=== PATIENT | female | born 1955 | race Caucasian/White ===

== ENCOUNTER → 2017-06-07 | Outpatient (CLI) | payer BC ==
[~2017-06-07] MED LIST: BUPR-126 PO; CLIN300C99 PO; SERT-1 PO; SERT20OR6 PO; TRAZ-156 PO
--- NOTE | 2017-06-10 09:57 | RADIOLOGY IMAGING REPORT ---
FACILITY: [facility] - [place] PATIENT NAME: September : [id number] MR: [id number] V: [id number] EXAM DATE: ORDERING PHYSICIAN: EMILIANA SANCHEZ TECHNOLOGIST: Dhara Mills PROCEDURE:BILATERAL DIGITAL SCREENING MAMMOGRAM WITH CAD ASSISTED INTERPRETATION AND 3D BREAST TOMOSYNTHESIS. COMPARISON:Prior mammograms dated 07/13/15. INDICATIONS:SCREENING FINDINGS: Moderately dense fibroglandular tissue is seen throughout the breasts. The parenchymal pattern has remained stable when allowing for difference in mammographic technique and patient positioning. There is no evidence of malignant appearing mass, malignant appearing calcification or secondary sign of malignancy in either breast. DIAGNOSTIC CATEGORY 1--NEGATIVE. RECOMMENDATIONS: ROUTINE MAMMOGRAM AND CLINICAL EVALUATION. IMPRESSION: BI-RADS1: No significant abnormality seen. Images were reviewed with R2CAD and 3D breast tomosynthesis. Dictated by: Cortney Lyles M.D. on 06/07/2017 at 11:08 Transcribed by: LUCY on 06/09/2017 at 19:36 Approved by: Cortney Lyles M.D. on 06/10/2017 at 9:56 [facility]
== END ==
LOC: MAMO 01:05
PROVIDERS: ATTEND Nurse Practitioner Family
DX: Z12.31 Encounter for screening mammogram for malignant neoplasm of breast (principal)
CPT/HCPCS: 77063; 77067

== ENCOUNTER → 2018-12-15 | Outpatient (CLI) | payer OTHER ==
[~2018-12-15] MED LIST changes: +SERT-173 PO; -SERT20OR6 PO; -TRAZ-156 PO; +TRAZ50TA52 PO
--- NOTE | 2018-12-15 15:32 | RADIOLOGY IMAGING REPORT ---
FACILITY: [facility] PATIENT NAME: September Radha : 1955 MR: [id number] V: [id number] EXAM DATE: ORDERING PHYSICIAN: EMILIANA SANCHEZ TECHNOLOGIST: Location: [facility] Patient: Radha, September : 1955 Visit/Account:[id number] Date of Sevice: 12/15/2018 XR HAND 3 VIEWS/MORE HISTORY: Arthropathy Additional history: None COMPARISON: None. FINDINGS: Multiple views both hands Right hand: There are small osteophytosis seen in the second third DIP joints and several tiny calcif ications possibly representing intra-articular loose bodies in the second DIP joint. Minimal joint s pace narrowing with osteophytosis seen in the fifth PIP joint Left hand: Minimal joint space narrowing and osteophytosis seen in the second third and fifth DIP cassy nts of the joints are unremarkable. There is very minimal deformity at the base of the proximal phal anx of the thumb which might represent sequelae from an old fracture. 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
--- NOTE | 2018-12-15 15:34 | RADIOLOGY IMAGING REPORT ---
FACILITY: [facility] [place] PATIENT NAME: September Radha : 1955 MR: [id number] V: [id number] EXAM DATE: ORDERING PHYSICIAN: EMILIANA SANCHEZ TECHNOLOGIST: Location: [facility] [place] Patient: Radha, September : 1955 Visit/Account:[id number] Date of Sevice: 12/15/2018 CHEST PA LAT History: Acute bronchitis FINDINGS: Comparison studies: None. Tubes and Lines: None. Lungs and pleura: There is mild pulmonary hyperinflation. There is no evidence of focal consolidat ion or pleural effusions. Mediastinum: normal. Cardiac silhouette: normal . Osseous structures: Unremarkable for age . IMPRESSION: Mild hyperinflation but otherwise unremarkable exam. Report Dictated By: Miah Butcher MD at 12/15/2018 3:26 PM Report E-Signed By: Miah Butcher MD at 12/15/2018 3:27 PM WSN:[id number]
== END ==
LOC: RAD 14:26
PROVIDERS: ATTEND Nurse Practitioner Family
DX: M19.041 Primary osteoarthritis, right hand (principal); M19.042 Primary osteoarthritis, left hand
CPT/HCPCS: 71046

== ENCOUNTER → 2018-12-18 | Outpatient (CLI) | payer OTHER ==
--- NOTE | 2018-12-18 17:21 | RADIOLOGY IMAGING REPORT ---
FAC[place]: [facility] [place]IENT NAME: September Radha : 1955 MR: [id number] V: [id number] EXAM DATE: ORDERING PHYSICIAN: EMILIANA SANCHEZ TECHNOLOGIST: [facility] Patient: Radha, September : 1955 Visit/Account:[id number] Date of Sevice: 12/18/2018 EXAMINATION: CT sinus without IV contrast HISTORY: Bacterial sinusitis COMPARISON: None. TECHNIQUE: Contiguous axial images were obtained through the paranasal sinuses without intravenous c ontrast administration. Coronal and sagittal reformatted images were obtained from the axial source d kaylin. One of the following dose optimization techniques was utilized in the performance of this exam: Autom ated exposure control; adjustment of the mA and/or kV according to the patient's size; or use of an i terative reconstruction technique. Specific details can be referenced in the facility's radiology C T exam operational policy. FINDINGS: Maxillary sinuses: There is moderate mucosal thickening with osteitis in the left maxillary sinus. Th ere is also a soft tissue with hyperdense component arising from the floor of the maxillary sinus. The right maxillary sinus is clear. Frontal sinuses: Negative. Ethmoid air cells: Negative. Sphenoid sinuses: Negative. Ostiomeatal units: The right ostiomeatal unit is clear. The left ostiomeatal unit is opacified. Palumbo isabella, there is an accessory drainage pathway or posteriorly in the left maxillary sinus which is widel y patent. Nasal septum/nasal cavity: Negative. Orbits: Negative. Visualized intracranial contents/soft tissues: Negative. TMJs: Negative. IMPRESSION: Chronic mucosal thickening with soft tissue with hyperdense components in the left maxil tami sinus. This does not appear to be acute bacterial sinusitis however may represent chronic sinusi tis with or without fungal colonization. Report Dictated By: SONY GALLARDO at 12/18/2018 5:12 PM Report E-Signed By: SONY GALLARDO at 12/18/2018 5:15 PM WSN:[id number]
== END ==
LOC: CT 08:33
PROVIDERS: ATTEND Nurse Practitioner Family
DX: J20.9 Acute bronchitis, unspecified (principal); J32.9 Chronic sinusitis, unspecified
CPT/HCPCS: 70486

== ENCOUNTER 2019-01-05 02:21 | Day surgery (SDC) | payer OTHER ==
[~2019-01-05] VITALS: Ht 162.6 cm; Wt 56.7 kg
[~2019-01-05 02:21] MED LIST changes: +CALC-943 PO; +CEFPR500PT PO; +L.AC1CAP6; +LEVO5TAB28 PO; +LYSI500T32 PO; +MULT1CAP59 PO; +OMEG1CAP; +PRAS50TA
[2019-01-05] MEDS ORDERED: fentaNYL CITR 100 MCG/2 ML AMP ONE ×2 (06:48→08:31)
[2019-01-05] MEDS ORDERED: ONDANSETRON 4 MG/2 ML VIAL ONE (06:49)
[2019-01-05] MEDS ORDERED: LIDOCAINE 2% IV 100 MG/5ML SYR ONE (06:49)
[2019-01-05] MEDS ORDERED: PROPOFOL EMUL(*) 10MG/ML 20 ML 20 ML ONE (06:49)
[2019-01-05] MEDS ORDERED: DEXAMETHASONE SOD PHOS 10MG/ML ONE (06:49)
[2019-01-05] MEDS ORDERED: BACITRACIN OINT 15 GM TUBE TP ONE (07:08)
[2019-01-05] MEDS ORDERED: LIDO/EPI 1% MDV 1:100,000 20ML INFIL ONE (07:08)
[2019-01-05] MEDS ORDERED: NS(*) 0.9% 250 ML BAG 250 ML ONE (07:09)
[2019-01-05] MEDS ORDERED: FAMOTIDINE(*) 20MG/50ML PREMIX 50 ML IVPB ONE (07:12)
[2019-01-05] MEDS ORDERED: CLINDAMYCIN(*) 600 MG/NS 50 ML 50 ML IVPB ONE (07:20)
[2019-01-05] MEDS ORDERED: OXYMETAZOLINE SPRAY 15 ML BTL ONE (07:39)
[2019-01-05 07:40] VITALS: BP 114/54
[2019-01-05] MEDS ORDERED: NORMOSOL R SOLN(*) 1000 ML BAG 1,000 ML IV PRN (08:10)
[2019-01-05] MEDS ORDERED: FAMOTIDINE 20 MG TAB PO ONE (08:10)
[2019-01-05] MEDS ORDERED: MIDAZOLAM 2 MG/2 ML VIAL IVP PRN (08:10)
[2019-01-05] MEDS ORDERED: LIDOCAINE/SOD BICARB 8.4% SYR ID ONE (08:10)
[2019-01-05] MEDS ORDERED: METH4TAB66 PO (08:26)
[2019-01-05] MEDS ORDERED: HYDR-653 PO (08:27)
[2019-01-05] MEDS ORDERED: CEFU250T11 PO (08:27)
--- NOTE | 2019-01-05 08:39 | OPERATIVE REPORT 1 ---
EVENT DATE: January 05, 2019 SURGEON: Andre Crawley MD ANESTHESIOLOGIST: Naeem Bowden MD ANESTHESIA: LMA PREOPERATIVE DIAGNOSIS Chronic left maxillary sinusitis. POSTOPERATIVE DIAGNOSIS Chronic left maxillary sinusitis. PROCEDURE PERFORMED Left maxillary enterostomy with removal of sinus contents. INDICATIONS Please refer to the preoperative note. DESCRIPTION OF PROCEDURE The patient was positively identified in the preoperative area. She was there alone. Risks again explained, including, but are not limited to bleeding, infection, injury to the orbit, vision changes, injury to the eye, cerebral spine fluid leak, and those associated with anesthesia. She acknowledged understanding of those risks. Again, I reviewed the patient's preoperative CT of the sinuses. This was notable for opacification in the left maxillary sinus with calcifications. The patient was then brought back to the operative suite, placed supine on the operative table and anesthesia was administered. Once asleep, the patient was positioned and prepped and draped in the usual sterile fashion. The left nasal cavity was initially decongested by applying cottonoids containing Afrin solution. These were subsequently removed and nasal endoscopy was performed. This was notable for gross purulence in the left ostiomeatal complex. The lateral nasal wall infiltrated with approximately 1 cc of 1% lidocaine with epinephrine and then uncinectomy was performed. The natural maxillary ostium was widened with back biting forceps and the microdebrider blade. The patient had fungal concretions consistent with a fungal ball. This was carefully removed with suction and oblique sleeve forceps. The sinus was then irrigated with 60 cc of normal saline solution. A nasal port was placed. The patient was then turned to Anesthesia for emergence. ESTIMATED BLOOD LOSS 10 cc. COMPLICATIONS None. MTDD
[2019-01-05 09:07] VITALS: BP 128/53
[2019-01-05] MEDS ORDERED: APAP/HYDROCODONE 325/5 TAB PO PRN (09:20)
[2019-01-05 10:00] VITALS: BP 115/63
[2019-01-05 11:17] VITALS: BP 109/58
[2019-01-05 11:23] VITALS: BP 115/70
[2019-01-05 11:24] VITALS: BP 110/69
[2019-01-08] MEDS ORDERED: SULF-198 PO (14:37)
== END 2019-01-05 09:07 | disposition home or self-care (01) ==
LOC: OR 02:21
PROVIDERS: ATTEND Otolaryngology
DX: J32.0 Chronic maxillary sinusitis (principal); R50.9 Fever, unspecified; R42 Dizziness and giddiness; R51 Headache; J02.9 Acute pharyngitis, unspecified; R05 Cough; F32.9 Major depressive disorder, single episode, unspecified
CPT/HCPCS: 31267; 87071; 87073; 87077; 87186; 87205; 87252; 94667; J1100; J2001; J2405; J2704; J3010; J3490; J7050